=== PATIENT | male | born 1980 | race African-American/Black ===

== ENCOUNTER 2020-03-13 11:20 | Emergency (ER) | payer SELFPAY ==
[2020-03-13] MEDS ORDERED: DIPH/PERTUSS(ACELL)/TETANUS VAC/PF 0.5 ML SYR (>=10YO) IM ONE ×2 (11:46→15:30)
--- NOTE | 2020-03-13 11:51 | ER Document Report ---
ED Medical Screen (RME) - General Stated Complaint: FALL/LIP LACERATION Time Seen by Provider: 03/13/20 11:46 Notes: HPI: 39-year-old male presenting for trip and fall with lacerations. Sustained abrasions to the palm of the right hand but also laceration to the lower lip denies dental injury denies difficulty opening the mouth denies other injuries or complaints. Is not up-to-date on tetanus vaccination PHYSICAL EXAMINATION: Multiple abrasions on the palms of the hand and the hypothenar region. There is a complex laceration partial evulsion of the central lower lip through the vermilion border region. Dentition appears grossly intact but difficult to ascertain secondary to blood in the mouth. No trismus I have greeted and performed a rapid initial assessment of this patient. A comprehensive ED assessment and evaluation of the patient, analysis of test results and completion of medical decision making process will be conducted by an additional ED providers. Physical Exam - Vital signs Vitals: Temp Pulse Resp BP Pulse Ox 98.4 F 107 H 18 148/86 H 100 03/13/20 11:26 03/13/20 11:26 03/13/20 11:26 03/13/20 11:26 03/13/20 11:26 Course - Vital Signs Vital signs: Temp Pulse Resp BP Pulse Ox 98.4 F 107 H 18 148/86 H 100 03/13/20 11:26 03/13/20 11:26 03/13/20 11:26 03/13/20 11:26 03/13/20 11:26
[2020-03-13] MEDS ORDERED: LIDOCAINE 1%/EPINEPHRINE INJ 20 ML VIAL INJ ONE (13:42)
--- NOTE | 2020-03-13 13:45 | ER Document Report ---
ED General - General Stated Complaint: FALL/LIP LACERATION Time Seen by Provider: 03/13/20 11:46 Primary Care Provider: ADDIE WINN MD [ACTIVE STAFF] - Follow up as needed RYANNE MATHEW MD [COMMUNITY BASED STAFF] - Follow up in 3-5 days (for suture removal ) - HPI Notes: 39-year-old male presents to the emergency room today for complaints of a laceration to his lower lip states sustained while he tripped approximately an hour and a half ago. Patient states he tripped while he was walking and landed a brick on the ground. patient reports he has abrasions to his right dorsal aspect of his hand. Unsure of his last tetanus, states has been well over 5 years. Tetanus was ordered in triage today. Denies any change in level consciousness, denies hitting head or altered mental status. Denies any loose teeth. Patient has not any blood thinners. Has not tried any [id number] medications. Denies any difficulty opening or closing his mouth. States pain is 2 out of 5, throbbing achy. Denies fevers, chills, chest pain,palpitations, shortness of breath, dyspnea, nausea, vomiting, diarrhea, abdominal pain, hematuria,blurred vision, double vision, loss of vision, speech changes, LH, dizziness, syncope, headaches, wheezing, ST, URI, neck pain, weakness, bowel or bladder dysfunction, saddle anesthesia, numbness or tingling in bilateral upper or lower extremities equally, muscle paralysis, weakness in bilateral upper or lower extremities equally or rash. Denies IV drug use. - Related Data Allergies/Adverse Reactions: No Known Allergies Allergy (Verified 03/13/20 14:00) Past Medical History - General Information source: Patient - Social History Smoking Status: Unknown if Ever Smoked Family History: Reviewed & Not Pertinent Review of Systems - Review of Systems Constitutional: No symptoms reported EENT: No symptoms reported Cardiovascular: No symptoms reported Respiratory: No symptoms reported Gastrointestinal: No symptoms reported Genitourinary: No symptoms reported Male Genitourinary: No symptoms reported Musculoskeletal: No symptoms reported Skin: See HPI Hematologic/Lymphatic: No symptoms reported Neurological/Psychological: No symptoms reported Physical Exam - Vital signs Vitals: Temp Pulse Resp BP Pulse Ox 98.4 F 107 H 18 148/86 H 100 03/13/20 11:26 03/13/20 11:26 03/13/20 11:26 03/13/20 11:26 03/13/20 11:26 - Notes Notes: MEDICATIONS: I agree with the patient medications as charted by the RN. ALLERGIES: I agree with the allergies as charted by the RN. PAST MEDICAL HISTORY/PAST SURGICAL HISTORY: Reviewed and agree as charted by RN. SOCIAL HISTORY: Reviewed and agree as charted by RN. FAMILY HISTORY: No significant familial comorbid conditions directly related to patient complaint EXAM: Reviewed vital signs as charted by RN. PHYSICAL EXAMINATION:reviewed vital signs by RN GENERAL: Well-appearing, well-nourished and in no acute distress. HEAD: Atraumatic, normocephalic. EYES: Pupils equal round and reactive to light, extraocular movements intact, sclera anicteric, conjunctiva are normal. ENT: Nares patent, oropharynx clear without exudates. Moist mucous membranes. partial evulsion of the central lower lip just below the lower vermilion border region approx by 0.5cm. No loose teeth. A no chipping of teeth. No trismus. Upper and lower frontal gingiva is completely intact. NECK: Normal range of motion, supple without lymphadenopathy LUNGS: Breath sounds clear to auscultation bilaterally and equal. No wheezes rales or rhonchi. HEART: Regular rate and rhythm without murmurs ABDOMEN: Soft, nontender, nondistended abdomen. No guarding, no rebound. No masses appreciated. Musculoskeletal: Normal range of motion, no pitting or edema. No cyanosis. NEUROLOGICAL: Cranial nerves grossly intact. Normal speech, normal gait. Normal sensory, motor exams PSYCH: Normal mood, normal affect. SKIN: Warm, Dry, normal turgor, no rashes or lesions noted. Multiple abrasions on the palms of the hand and the hypothenar region. Course - Re-evaluation Re-evalutation: 03/13/20 15:41 Afebrile vital stable no distress. Nurses notes reviewed. please see procedure note for suture details. Advised patient on antibiotic therapy, Augmentin to take twice a day for 10 days. [address] to not drive, drink or operate heavy machinery while taking medication of narcotics as it can cause sedation or impairment of cognitive function. Advised to not submerge in water. Return to the emergency room or primary care office in 3 to 5 days for suture removal. Tetanus was updated today. Alternate between Tylenol and ibuprofen for pain control. I did give patient referral to plastic surgeon if needed due to the laceration being on the lower lip for the cosmesis that he would like if wanted. after performing a Medical Screening Examination, I estimate there is LOW risk for OPEN FRACTURE, COMPARTMENT SYNDROME, TENDON RUPTURE, ACUTE NEUROVASCULAR INJURY, or RETAINED FOREIGN BODY, thus I consider the discharge disposition reasonable. Also, there is no evidence or peritonitis, sepsis, or toxicity. I have reevaluated this patient multiple times and no significant life threatening changes are noted. The patient and I have discussed the diagnosis and risks, and we agree with discharging home with close follow-up with the understanding that symptoms and presentations can change. We also discussed returning to the Emergency Department immediately if new or worsening symptoms occur. We have discussed the symptoms which are most concerning (e.g., changing or worsening pain, fever, numbness, weakness, cool or painful digits) that necessitate immediate return. - Vital Signs Vital signs: Temp Pulse Resp BP Pulse Ox 98.4 F 90 16 154/98 H 98 03/13/20 11:26 03/13/20 15:43 03/13/20 15:43 03/13/20 15:43 03/13/20 15:43 Procedures - Laceration/Wound Repair Face Time completed: 15:21 Wound length (cm): 2 - cm Wound's Depth, Shape: Flap Laceration pre-procedure: Sterile PPE donned, Chloraprep applied, Shur-Clens applied Anesthetic type: 1% Lidocaine w/epi Volume Anesthetic (mLs): 3 - mL Wound explored: Clean Irrigated w/ Saline (mLs): 300 - ML of high pressure irrigation Wound Debrided: Minimal Wound Repaired With: Sutures - 2 5.0 chromic simple suture, 11 5.0 prolene simple sutures Suture Size/Type: 5:0, Prolene, Other - chromic Layer Closure?: No Deep Layer Suture Size/Type: Chromic - #2 simple sutures Notes: 03/13/20 15:22 Verbal consent given for laceration repair. High-pressure irrigation with 300 mL of normal saline to lower lip wound. Wound edges well approximated. #2 Chromic 5.0 placed, #11 5.0 prolene simple sutures placed. Patient tolerated procedure without incident. Discharge - Discharge Clinical Impression: Lip laceration Condition: Stable Disposition: HOME, SELF-CARE Instructions: Laceration Care ([facility]), Oral Narcotic Medication ([facility]), Prophylactic Antibiotic ([facility]), Soap Cleansing ([facility]), Tetanus Immunization Given ([facility]) Additional Instructions: Please return to your primary doctor, the ED, or an urgent care in 3-5 days for suture removal. Return immediately if you develop spreading redness around the wound, pus from the wound, worsening pain, or a fever of >100.4. Keep the area clean and dry. Wash gently with soap and water twice daily and cover with antibiotic ointment. Please do not drive, drink alcohol or operate heavy machinery while taking narcotics as it can cause sedation or impairment of cognitive function. Take antibiotics as directed twice a day for 10 days. Your tetanus was updated today. Wash with soap and water when dirty or at least twice a day. Do not submerge in a body of water until your sutures are removed. A referral has been given to plastic surgeon if you feel that you need it. Return immediately for any new or worsening symptoms. Follow up with primary care provider, call tomorrow to make followup appointment. Prescriptions: Amoxicillin/Potassium Clav [Augmentin 875-125 Tablet] 1 tab PO Q12 10 Days #20 tablet Forms: Return to Work Referrals: ADDIE WINN MD [ACTIVE STAFF] - Follow up as needed RYANNE MATHEW MD [COMMUNITY BASED STAFF] - Follow up in 3-5 days (for suture removal )
[2020-03-13] MEDS ORDERED: HYDROCODONE/ACETAMINOPHEN 5-325 MG (6 TAB/ER DISP) PO PRN (15:24)
[2020-03-13 15:44] VITALS: BP 154/98
== END 2020-03-13 15:43 | disposition home or self-care (01) ==
LOC: ER 11:20
DX: S01.511A Laceration without foreign body of lip, initial encounter (principal); S60.511A Abrasion of right hand, initial encounter; W19.XXXA Unspecified fall, initial encounter; W22.8XXA Striking against or struck by other objects, initial encounter; Y93.01 Activity, walking, marching and hiking; Z23 Encounter for immunization
CPT/HCPCS: 12011; 99284; 90471; 90715; J3490

== ENCOUNTER 2020-03-19 09:30 | Emergency (ER) | payer SELFPAY ==
--- NOTE | 2020-03-19 10:09 | ER Document Report ---
Entered by ZENA NARAYAN SCRIBE 03/19/20 1007 Acting as scribe for:CARMEN WILKINS MD ED Suture/Wound Recheck - General Chief Complaint: Suture Removal Stated Complaint: SUTURE REMOVAL/LIP Mode of Arrival: Ambulatory Information source: Patient Notes: This 40 year old male patient presents to the ED today for suture removal. Patient sustained a lip laceration x1 week ago after a fall. Denies any other complaints. - Related Data Allergies/Adverse Reactions: No Known Allergies Allergy (Verified 03/13/20 14:00) Past Medical History - General Information source: Patient - Social History Smoking Status: Never Smoker Cigarette use (# per day): No Chew tobacco use (# tins/day): No Smoking Education Provided: No Frequency of alcohol use: None Drug Abuse: None Family History: Reviewed & Not Pertinent Patient has suicidal ideation: No Patient has homicidal ideation: No Review of Systems - Review of Systems Constitutional: See HPI EENT: No symptoms reported Cardiovascular: No symptoms reported Respiratory: No symptoms reported Gastrointestinal: No symptoms reported Genitourinary: No symptoms reported Male Genitourinary: No symptoms reported Musculoskeletal: No symptoms reported Skin: See HPI Hematologic/Lymphatic: No symptoms reported Neurological/Psychological: No symptoms reported -: Yes All other systems reviewed and negative Physical Exam - Vital signs Vitals: Temp Pulse Resp BP Pulse Ox 98.8 F 74 16 146/78 H 100 03/19/20 09:33 03/19/20 09:33 03/19/20 09:33 03/19/20 09:33 03/19/20 09:33 Interpretation: Normal - General General appearance: Appears well, Alert In distress: None - HEENT Head: Normocephalic, Atraumatic Eyes: Normal Pupils: PERRL Mouth/Lips: Other - Well-healed lower lip laceration - Respiratory Respiratory status: No respiratory distress Chest status: Nontender Breath sounds: Normal Chest palpation: Normal - Cardiovascular Rhythm: Regular Heart sounds: Normal auscultation Murmur: No - Abdominal Inspection: Normal Distension: No distension Bowel sounds: Normal Tenderness: Nontender - Abdomen soft Organomegaly: No organomegaly - Back Back: Normal, Nontender - Extremities General upper extremity: Normal inspection General lower extremity: Normal inspection. No: Edema - Neurological Neuro grossly intact: Yes Rama Coma Scale Eye Opening: Spontaneous [place] Coma Scale Verbal: Oriented Rama Coma Scale Motor: Obeys Commands Rama Coma Scale Total: 15 - Psychological Associated symptoms: Normal affect, Normal mood - Skin Skin Temperature: Warm Skin Moisture: Dry Skin Color: Normal Course - Re-evaluation Re-evalutation: 03/19/20 16:03 Sutures all sutures were removed by nurse patient tolerated procedure well no complications. Patient advised to continue to use antibiotic ointment until further healing. - Vital Signs Vital signs: Temp Pulse Resp BP Pulse Ox 97.8 F 75 16 142/74 H 100 03/19/20 10:27 03/19/20 10:27 03/19/20 10:27 03/19/20 10:27 03/19/20 10:27 Discharge - Discharge Clinical Impression: Lip laceration, Visit for suture removal Condition: Stable Disposition: HOME, SELF-CARE Instructions: Antibiotic Ointment Protection ([facility]) I personally performed the services described in the documentation, reviewed and edited the documentation which was dictated to the scribe in my presence, and it accurately records my words and actions.
[2020-03-19 10:29] VITALS: BP 142/74
== END 2020-03-19 10:27 | disposition home or self-care (01) ==
LOC: ER 09:30
DX: S01.511D Laceration without foreign body of lip, subsequent encounter (principal); W19.XXXD Unspecified fall, subsequent encounter
CPT/HCPCS: 99281